=== PATIENT | female | born 1995 | race African-American/Black ===

== ENCOUNTER 2019-06-12 02:56 | Emergency (ER) | payer MEDICAID, OTHER ==
[~2019-06-12] VITALS: Ht 162.6 cm; Wt 100.0 kg
[2019-06-12 04:08] VITALS: BP 120/85
== END 2019-06-12 04:17 | disposition home or self-care (01) ==
LOC: ER 02:56
DX: S60.022A Contusion of left index finger without damage to nail, initial encounter (principal); L03.012 Cellulitis of left finger; X58.XXXA Exposure to other specified factors, initial encounter; Y93.89 Activity, other specified; Y92.89 Other specified places as the place of occurrence of the external cause; Y99.8 Other external cause status
CPT/HCPCS: 99283; Z7610